=== PATIENT | female | born 1930 | race Caucasian/White ===

== ENCOUNTER → 2017-06-27 | Outpatient (CLI) | payer OTHER ==
[~2017-06-27] MED LIST: ASPIR 8181 MG; MULTIVITAMINS1 EAC7; NORCO 5-325 TA1 EACH PO; RESTORIL7.5 MG PO; TRAMADOL 50 MG50 MG PO; TUMS; TYLENOL325 MG PO
== END ==
LOC: MRI 09:12
DX: E04.2 Nontoxic multinodular goiter (principal); G31.9 Degenerative disease of nervous system, unspecified; R41.82 Altered mental status, unspecified